=== PATIENT | female | born 1935 | race Caucasian/White ===

== ENCOUNTER 2018-05-02 06:53 | Day surgery (SDC) | payer MEDICARE, BC ==
[2018-05-02] MEDS ORDERED: Sodium Chloride 0.9% 5 ML Syringe FLUSH PRN (07:30)
[2018-05-02] MEDS ORDERED: Lactated Ringers 1,000 ML IV SCH (07:30)
[2018-05-02] MEDS: Phenylephrine 10% Ophth Soln 5 ML Bot EYELF SCH ×3 (07:44→08:05)
[2018-05-02] MEDS: Cyclopentolate 1% Opth Soln 2 ML Bottle EYELF SCH ×3 (07:49→08:16)
[2018-05-02] MEDS ORDERED: Gatifloxacin 0.5% Ophth Soln 2.5 ML Bot EYELF SCH (08:00)
[2018-05-02] MEDS ORDERED: Carbachol 0.01% Intraocular 1.5 ML Vial EYELF ONE (09:23)
[2018-05-02] MEDS ORDERED: Water For Irrigation,Sterile 1,500 ML Container IRR ONE (09:23)
[2018-05-02] MEDS ORDERED: Balanced Salt Solution Ophth Irrig 15 ML Bottle EYELF ONE (09:23)
[2018-05-02] MEDS ORDERED: Balanced Salt Solution Plus Ophth Irrig 500 ML Bottle IOCULAR ONE (09:23)
[2018-05-02] MEDS ORDERED: Lidocaine 2% with EPINEPHrine 1:100,000 20 ML MDV INJECT ONE (09:24)
[2018-05-02] MEDS ORDERED: EPINEPHrine 1 MG/ML SDV ONE (09:24)
[2018-05-02] MEDS ORDERED: Dexamethasone/Neomycin/Polymyxin B Ophth Oint 3.5 GM Tube EYELF ONE (09:24)
[2018-05-02] MEDS ORDERED: Lidocaine 1% 10 ML MDV INJECT ONE (09:25)
[2018-05-02] MEDS ORDERED: Tetracaine HCl/PF 0.5% 4 ML Bottle EYEBOTH ONE (09:25)
[2018-05-02] MEDS ORDERED: Hyaluronate Sodium 1% 0.85 ML Syringe IOCULAR ONE (09:25)
[2018-05-02 09:44] VITALS: BP 145/53
--- NOTE | 2018-05-03 09:15 | OR ---
DATE OF SURGERY: 05/02/2018 SURGEON: Kofi Larson MD PREOPERATIVE DIAGNOSIS: Cataract, left eye. POSTOPERATIVE DIAGNOSIS: Cataract, left eye. OPERATION PERFORMED: Phacoemulsification with posterior chamber lens insertion, left eye. HISTORY: The patient presents at this time with increasing amount of difficulty seeing to read with the left eye. The vision for the left eye is 20/70. The left lens has a 3+ nuclear sclerosis, 3+ posterior subcapsular cataract, and a 2+ cortical change. This eye has a cataract of aging and a combined cataract. FINDINGS: The patient was taken to the operating room where appropriate anesthesia, sedation and monitoring were provided. A retrobulbar block was given on the left side. The eye was massaged and was found to be appropriately soft. The eye and eyelids were then prepped and draped in the usual sterile manner. A lid speculum was placed. A micro sharp blade was used to enter the anterior chamber inside the limbus inferior-temporally. Xylocaine was irrigated into the eye at this site. Healon was irrigated into the eye through this site. Then using a 2.85 mm corneal blade an entry was made into the anterior chamber just inside the limbus temporally. Healon was again irrigated into the eye. Then using a cystitome, the anterior capsulorrhexis was created. The lens nucleus was hydrodissected using a 27 gauge cannula and balanced salt solution. The phacoemulsification unit was introduced through the temporal site and the Joseph spatula through the inferior temporal site. In so doing, the lens nucleus was phacoemulsified. The cortical fragments of the lens were removed using the irrigation aspiration unit. The posterior capsule was polished. Healon was irrigated into the eye. The posterior chamber lens was inserted and rotated into position inside the capsular bag. The Healon was irrigated out of the eye. Miostat was irrigated into the eye and the pupil rounded nicely. A single interrupted 10-0 Nylon suture was placed through the temporal corneal incision site. Balanced salt solution was irrigated into the eye. The wound was tested and found to be tight. Maxitrol ointment was placed into the patient's left eye. The eyelids were closed and an eye patch and sidhu shield were placed. The patient left the operating room in good condition. /[id number]/MODL
== END 2018-05-02 10:15 | disposition home or self-care (01) ==
LOC: KA.SDS 06:53
PROVIDERS: ATTEND Ophthalmology
DX: H25.812 Combined forms of age-related cataract, left eye (principal); I13.0 Hypertensive heart and chronic kidney disease with heart failure and stage 1 through stage 4 chronic kidney disease, or unspecified chronic kidney disease; I50.42 Chronic combined systolic (congestive) and diastolic (congestive) heart failure; N18.3 Chronic kidney disease, stage 3 (moderate); J44.9 Chronic obstructive pulmonary disease, unspecified; N18.2 Chronic kidney disease, stage 2 (mild); E66.01 Morbid (severe) obesity due to excess calories; Z68.41 Body mass index [BMI] 40.0-44.9, adult; I48.2 Chronic atrial fibrillation; G47.33 Obstructive sleep apnea (adult) (pediatric); E78.2 Mixed hyperlipidemia
CPT/HCPCS: 00142; 36416; 66984; 85610; A9270; C1780; J0171; J7120

== ENCOUNTER 2019-11-13 16:20 | Emergency (ER) | payer MEDICARE, BC, OTHER ==
[2019-11-13] MEDS ORDERED: Sodium Chloride 0.9% 10 ML Syringe FLUSH PRN (16:51)
--- NOTE | 2019-11-13 17:02 | EDM.PDOC ---
ED HPI GENERAL MEDICAL PROBLEM - General Chief Complaint: Respiratory Problem Stated Complaint: HYPOXEMIA Time Seen by Provider: 11/13/19 16:35 Source of Information: Reports: Patient History Limitations: Reports: No Limitations - History of Present Illness INITIAL COMMENTS - FREE TEXT/NARRATIVE: 84 YO WF with PMH of COPD O2 dependent, Afib with CHF exacerbation who presents to ER with 1 day history of shortness of breath. Pt reports she uses home O2 in the [facility] and had begun to require more O2 since yesterday. Today patient reports feeling nauseated and vomited x 1. Pt denies chest pain, no fever/chills, no known sick contacts. Pt lives in an NURSING HOME. Pt with increased lower extremity swelling. Pt denies any positional dyspnea but reports decreased exercise tolerance. Onset: Today Location: Reports: Generalized Improves with: Reports: Rest Worsens with: Reports: Breathing Associated Symptoms: Reports: Cough, Nausea/Vomiting, Shortness of Breath. Denies: Chest Pain, cough w sputum, Fever/Chills, Malaise, Rash - Related Data Allergies Allergy/AdvReac Type Severity Reaction Status Date / Time No Known Drug Allergies Allergy Cannot Verified 05/02/18 07:28 Remember Home Meds: Home Meds Allopurinol [Zyloprim] 1 tab PO DAILY 06/18/16 [History] Cranberry Conc/Ascorbic Acid [Cranberry Plus Vitamin C Sftgl] 1 tab PO DAILY [History] Furosemide [Lasix] 40 mg PO DAILY 06/18/16 [History] Garlic 1 tab PO DAILY 06/18/16 [History] Lutein 1 tab PO DAILY 06/18/16 [History] Metolazone [Zaroxolyn] 2.5 mg PO MOFR 06/18/16 [History] Metoprolol Succinate [Toprol Xl] 100 mg PO DAILY 06/18/16 [History] Multivitamin-Min/Iron/FA/Vit K [Multi-Day Plus Minerals Tablet] 1 tab PO DAILY 06/18/16 [History] Potassium Chloride [Klor-Con 10] 10 meq PO DAILY 06/18/16 [History] Warfarin [Coumadin] 2.5 mg PO ASDIRECTED 06/18/16 [History] Albuterol/Ipratropium [DuoNeb 3.0-0.5 MG/3 ML] 3 ml NEB TID #60 neb 06/23/16 [Rx ] Budesonide [Pulmicort] 0.25 mg NEB BID 03/23/18 [History] Past Medical History HEENT History: Reports: Cataract, Impaired Vision Cardiovascular History: Reports: Afib, Heart Failure, High Cholesterol, Hypertension Other Cardiovascular History: pulmonary hypertension Respiratory History: Reports: COPD, Sleep Apnea Gastrointestinal History: Reports: None Genitourinary History: Reports: Renal Calculus MUD LOGGER History: Reports: Musculoskeletal History: Reports: None Endocrine/Metabolic History: Reports: Obesity/BMI 30+ Hematologic History: Reports: Anticoagulation Therapy - Infectious Disease History Infectious Disease History: Reports: Chicken Pox - Past Surgical History HEENT Surgical History: Reports: Cataract Surgery Cardiovascular Surgical History: Reports: None GI Surgical History: Reports: Colonoscopy Female Surgical History: Reports: None Endocrine Surgical History: Reports: None Musculoskeletal Surgical History: Reports: Hip Replacement Social & Family History - Caffeine Use Caffeine Use: Reports: Coffee, Soda Other Caffeine Use: 1 ED ROS GENERAL - Review of Systems Review Of Systems: See Below Constitutional: Reports: No Symptoms HEENT: Reports: No Symptoms Respiratory: Reports: Shortness of Breath, Cough Cardiovascular: Reports: Edema Endocrine: Reports: No Symptoms GI/Abdominal: Reports: No Symptoms : Reports: No Symptoms Musculoskeletal: Reports: No Symptoms Skin: Reports: No Symptoms Neurological: Reports: No Symptoms Psychiatric: Reports: No Symptoms Hematologic/Lymphatic: Reports: No Symptoms Immunologic: Reports: No Symptoms ED EXAM, GENERAL - Physical Exam Exam: See Below Exam Limited By: No Limitations General Appearance: Alert, WD/WN, No Apparent Distress Eye Exam: Bilateral Eye: PERRL Throat/Mouth: Normal Inspection, Normal Lips, Normal Teeth, Normal Gums, Normal Oropharynx, Normal Voice, No Airway Compromise Head: Atraumatic, Normocephalic Neck: Normal Inspection, Supple, Non-Tender, Full Range of Motion Respiratory/Chest: No Respiratory Distress, Normal Breath Sounds, No Accessory Muscle Use, Chest Non-Tender, Decreased Breath Sounds. No: Respiratory Distress , Rales, Rhonchi, Accessory Muscle Use Cardiovascular: Normal Peripheral Pulses, No Gallop, No JVD, No Murmur, No Rub, Irregularly Irregular GI/Abdominal: Normal Bowel Sounds, Soft, Non-Tender, No Organomegaly, No Distention, No Abnormal Bruit, No Mass Back Exam: Normal Inspection, Full Range of Motion, NT Extremities: Normal Inspection, Normal Range of Motion, Non-Tender, Normal Capillary Refill, No Pedal Edema Neurological: Alert, Oriented, CN II-XII Intact, Normal Cognition, Normal Gait, Normal Reflexes, No Motor/Sensory Deficits Psychiatric: Normal Affect, Normal Mood Skin Exam: Warm Lymphatic: No Adenopathy EKG INTERPRETATION EKG Date: 11/13/19 Time: 17:09 Rhythm: A-Fib Rate (Beats/Min): 83 [place]: Normal P-Wave: Present QRS: Normal ST-T: Normal QT: Normal Comparison: No Change Course - Vital Signs Last Recorded V/S: Last Vital Signs Temp 35.9 C L 11/13/19 16:43 Pulse 85 11/13/19 16:43 Resp 24 H 11/13/19 16:43 BP 131/50 L 11/13/19 16:43 Pulse Ox 80 L 11/13/19 16:43 - Orders/Labs/Meds Orders: Active Orders 24 hr Category Date Time Status Cardiac Monitoring [RC] . DIRECTED Care 11/13/19 16:51 Ordered EKG Documentation Completion [RC] ASDIRECTED Care 11/13/19 16:52 Ordered Peripheral IV Care [RC] . DIRECTED Care 11/13/19 16:52 Ordered B-TYPE NATRIURETIC PEPTIDE,BNP [CHEM] Stat Lab 11/13/19 16:51 Ordered CK W CKMB [CHEM] Stat Lab 11/13/19 16:51 Ordered COMPREHENSIVE METABOLIC PN,CMP [CHEM] Stat Lab 11/13/19 16:51 Ordered INR,PT,PROTHROMBIN TIME [COAG] Stat Lab 11/13/19 16:51 Ordered PTT,PARTIAL THROMBOPLSTIN TIME [COAG] Stat Lab 11/13/19 16:51 Ordered TROPONIN I [CHEM] Stat Lab 11/13/19 16:51 Ordered Sodium Chloride 0.9% [Saline Flush] Med 11/13/19 16:51 Ordered 10 ml FLUSH Q8HR PRN Peripheral IV Insertion Adult [OM.PC] Routine Oth 11/13/19 16:51 Ordered EKG 12 Lead [EK] Routine Ther 11/13/19 16:51 Ordered Medication Orders Sodium Chloride (Saline Flush) 10 ml FLUSH Q8HR PRN PRN Reason: keep vein open Labs: Laboratory Tests 03/24/20 03/24/20 Range/Units 16:45 16:45 WBC 9.61 (5.00-10.00) 10^3/uL RBC 5.10 (3.80-5.50) 10^6/uL Hgb 15.2 (12.0-16.0) g/dL Hct 49.8 H (37.0-47.0) % MCV 97.6 H D (82.0-92.0) fL MCH 29.8 (27.0-31.0) pg MCHC 30.5 L (32.0-36.0) g/dL RDW 13.6 (11.5-14.5) % Plt Count 69 L (150-400) 10^3/uL MPV 11.6 H (7.4-10.4) fL Immature Gran % (Auto) 0.0 (0.0-5.0) % Neut % (Auto) 90.0 H (50.0-70.0) % Lymph % (Auto) 7.7 L (20.0-40.0) % [place] % (Auto) 2.0 (2.0-8.0) % Eos % (Auto) 0.1 L (1.0-3.0) % Baso % (Auto) 0.2 (0.0-1.0) % Immature Gran # (Auto) 0.00 (0.00-0.50) 10^3/uL Neut # (Auto) 8.65 H (2.50-7.00) 10^3/uL Lymph # (Auto) 0.74 L (1.00-4.00) 10^3/uL [place] # (Auto) 0.19 (0.10-0.80) 10^3/uL Eos # (Auto) 0.01 L (0.10-0.30) 10^3/uL Baso # (Auto) 0.02 (0.00-0.10) 10^3/uL B-Natriuretic Peptide 40 (0-100) pg/mL Meds: Medications Generic Name Dose Route Start Last Admin Trade Name Freq PRN Reason Stop Dose Admin Sodium Chloride 10 ml 11/13/19 16:51 Saline Flush FLUSH Q8HR PRN keep vein open - Radiology Interpretation Free Text/Narrative:: CXR- NAD - Re-Assessments/Exams Free Text/Narrative Re-Assessment/Exam: 11/13/19 17:57 Pt reports she feels fine. SaO2-96% on 2L. Pt denies cough, congestion, fever/ chills. Pt was offered overnight observation and she refused stating she needs to get home to her . Discussed case with Amara De La Rosa- agrees with management and discharge. Pt has an appointment at the [facility] 10am tomorrow. Pt was instructed to use her home nebulizer treatments Q4 and PRN. Pt understood and is comfortable with discharge plan. Departure - Departure Time of Disposition: 18:02 Disposition: Home, Self-Care 01 Condition: Good Clinical Impression: COPD exacerbation - Discharge Information Instructions: Chronic Obstructive Pulmonary Disease Exacerbation Referrals: Rachel Cortes, [employer] [Primary Care Provider] - Forms: ED Department Discharge Additional Instructions: 1. discharge home 2. continue home O2 at 2L 3. nebulizer treatments every 4 hours and as needed 4. follow up in clinic as scheduled tomorrow at 10a 5. return to ER for worsening symptoms 6. continue home medications Sepsis Event Note - Focused Exam Vital Signs: Vital Signs Temp Pulse Resp BP Pulse Ox 11/13/19 16:43 35.9 C L 85 24 H 131/50 L 80 L Date Exam was Performed: 11/13/19 Time Exam was Performed: 17:38 - My Orders Last 24 Hours: My Active Orders 11/13/19 16:51 Cardiac Monitoring [RC] . DIRECTED B-TYPE NATRIURETIC PEPTIDE,BNP [CHEM] Stat CK W CKMB [CHEM] Stat COMPREHENSIVE METABOLIC PN,CMP [CHEM] Stat INR,PT,PROTHROMBIN TIME [COAG] Stat PTT,PARTIAL THROMBOPLSTIN TIME [COAG] Stat TROPONIN I [CHEM] Stat Sodium Chloride 0.9% [Saline Flush] 10 ml FLUSH Q8HR PRN Peripheral IV Insertion Adult [OM.PC] Routine EKG 12 Lead [EK] Routine 11/13/19 16:52 EKG Documentation Completion [RC] ASDIRECTED Peripheral IV Care [RC] . DIRECTED - Assessment/Plan Last 24 Hours: My Active Orders 11/13/19 16:51 Cardiac Monitoring [RC] . DIRECTED B-TYPE NATRIURETIC PEPTIDE,BNP [CHEM] Stat CK W CKMB [CHEM] Stat COMPREHENSIVE METABOLIC PN,CMP [CHEM] Stat INR,PT,PROTHROMBIN TIME [COAG] Stat PTT,PARTIAL THROMBOPLSTIN TIME [COAG] Stat TROPONIN I [CHEM] Stat Sodium Chloride 0.9% [Saline Flush] 10 ml FLUSH Q8HR PRN Peripheral IV Insertion Adult [OM.PC] Routine EKG 12 Lead [EK] Routine 11/13/19 16:52 EKG Documentation Completion [RC] ASDIRECTED Peripheral IV Care [RC] . DIRECTED Assessment:: 1. COPD exacerbation Plan: 1. discharge home 2. continue home O2 at 2L 3. nebulizer treatments every 4 hours and as needed 4. follow up in clinic as scheduled tomorrow at 10a 5. return to ER for worsening symptoms 6. continue home medications
[2019-11-13 17:26] LABS: ANION GAP 7.4 mmol/L (5-15); CHLORIDE,CL 98 mmol/L (98-115); SODIUM,NA 143 mmol/L (136-145)
--- NOTE | 2019-11-13 17:37 | CR ---
[id number] RAD/RAD Chest PA or AP 1V EXAM: SINGLE VIEW CHEST. INDICATION: SHORTNESS OF BREATH COMPARISON: CORRELATION IS MADE WITH THE EXAM OF JUNE 20, 2016 FINDINGS: Scarring at the right lung base is seen There is no pneumonia or edema otherwise The cardiomediastinal contour is stable IMPRESSION: NO CHANGE SINCE LAST EXAM Cem Perera MD 11/13/19 [id number] Thank you for allowing us to participate in the care of your patient.
[2019-11-13 17:52] VITALS: BP 111/53; PULSE 82
[2019-11-13] MEDS: Albuterol/Ipratropium 3.0-0.5 MG/3 ML Neb Soln NEB ONE (18:00)
[2019-11-13 18:29] LABS: PTT,PARTIAL THROMBOPLSTIN TIME 33.6 SEC (23.1-31.9)
== END 2019-11-13 18:25 | disposition home or self-care (01) ==
LOC: KA.ED 16:20
DX: J44.1 Chronic obstructive pulmonary disease with (acute) exacerbation (principal); I48.91 Unspecified atrial fibrillation; I11.0 Hypertensive heart disease with heart failure; I50.9 Heart failure, unspecified; E66.9 Obesity, unspecified; Z68.41 Body mass index [BMI] 40.0-44.9, adult; Z99.81 Dependence on supplemental oxygen; Z79.01 Long term (current) use of anticoagulants
CPT/HCPCS: 71045; 80053; 82550; 82553; 83880; 84484; 85025; 85610; 85730; 93005; 99284; 99285-25; J7620-GY

== ENCOUNTER 2022-12-15 10:01 | Inpatient (IN) | payer MEDICARE, BC ==
[2022-12-15] MEDS ORDERED: Sodium Chloride 0.9% 10 ML Syringe FLUSH PRN (10:16)
[2022-12-15 11:13] LABS: ANION GAP 5.19999 mmol/L (5-15); CHLORIDE,CL 99 mmol/L (98-107); ESTIMATED GFR 40 mL/min (>=60); SODIUM,NA 145 mmol/L (136-145)
[2022-12-15 12:31] LABS: O2 DELIVERY DEVICE NASAL CANNULA
[2022-12-15 12:33] LABS: BASE EXCESS ARTERIAL 18 mmol/L ((-2)-(+3)); BICARBONATE,ARTERIAL 49 mmol/L (21-28); O2 SATURATION ARTERIAL 98 %; PO2 ARTERIAL 106 mmHG (83-108)
[2022-12-15 12:36] LABS: PCO2 ARTERIAL 79 mmHG (35-48)
[2022-12-15] MEDS ORDERED: Acetaminophen 650 MG Tab.ER PO PRN (15:48)
[2022-12-15] MEDS ORDERED: Warfarin 2.5 MG Tab PO SCH (16:00)
[2022-12-15] MEDS: Albuterol/Ipratropium 3.0-0.5 MG/3 ML Neb Soln NEB SCH (18:00)
[2022-12-15] MEDS: Allopurinol 100 MG Tab PO SCH (20:22)
[2022-12-15] MEDS: Budesonide 0.5 MG/2 ML Neb Susp INH SCH (20:22)
[2022-12-16] MEDS: Albuterol/Ipratropium 3.0-0.5 MG/3 ML Neb Soln NEB SCH ×3 (06:32→19:30)
[2022-12-16 08:38] LABS: O2 DELIVERY DEVICE NASAL CANNULA
[2022-12-16 08:42] LABS: PCO2 ARTERIAL 59 mmHG (35-48); PO2 ARTERIAL 69 mmHG (83-108)
[2022-12-16 08:43] LABS: BASE EXCESS ARTERIAL 17 mmol/L ((-2)-(+3)); BICARBONATE,ARTERIAL 44 mmol/L (21-28); O2 SATURATION ARTERIAL 94 %
[2022-12-16] MEDS: Budesonide 0.5 MG/2 ML Neb Susp INH SCH ×2 (08:43→20:28)
[2022-12-16] MEDS: Metoprolol Succinate 50 MG Tab.ER PO SCH (08:43)
[2022-12-16 08:50] LABS: CHLORIDE,CL 100 mmol/L (98-107); SODIUM,NA 145 mmol/L (136-145)
[2022-12-16 08:52] LABS: ANION GAP 3.89999 mmol/L (5-15); ESTIMATED GFR 48 mL/min (>=60)
[2022-12-16] MEDS: Furosemide 40 MG Tab PO SCH (13:16)
[2022-12-16] MEDS: Furosemide 20 MG Tab PO SCH (15:51)
[2022-12-16] MEDS: Allopurinol 100 MG Tab PO SCH (20:28)
[2022-12-17] MEDS: Albuterol/Ipratropium 3.0-0.5 MG/3 ML Neb Soln NEB SCH ×3 (06:26→19:10)
[2022-12-17 07:22] LABS: CHLORIDE,CL 103 mmol/L (98-107); SODIUM,NA 146 mmol/L (136-145)
[2022-12-17 07:38] LABS: ANION GAP 1.89999 mmol/L (5-15); ESTIMATED GFR 50 mL/min (>=60)
[2022-12-17] MEDS: Furosemide 20 MG Tab PO SCH (08:09)
[2022-12-17] MEDS: Furosemide 40 MG Tab PO SCH (08:09)
[2022-12-17] MEDS: Budesonide 0.5 MG/2 ML Neb Susp INH SCH ×2 (08:40→20:33)
[2022-12-17] MEDS: Metoprolol Succinate 50 MG Tab.ER PO SCH (09:00)
[2022-12-17] MEDS: Allopurinol 100 MG Tab PO SCH (20:33)
[2022-12-17] MEDS ORDERED: Metoprolol Succinate 50 MG Tab.ER PO SCH (21:00)
[2022-12-18] MEDS: Albuterol/Ipratropium 3.0-0.5 MG/3 ML Neb Soln NEB SCH (06:11)
[2022-12-18 07:58] LABS: CHLORIDE,CL 100 mmol/L (98-107); SODIUM,NA 142 mmol/L (136-145)
[2022-12-18 08:04] LABS: ESTIMATED GFR 58 mL/min (>=60)
[2022-12-18] MEDS: Budesonide 0.5 MG/2 ML Neb Susp INH SCH (08:29)
[2022-12-18] MEDS: Furosemide 40 MG Tab PO SCH (08:29)
[2022-12-18] MEDS: Furosemide 20 MG Tab PO SCH (08:29)
[2022-12-18 11:49] VITALS: BP 98/51; PULSE 93
== END 2022-12-18 14:15 | disposition swing bed (61) | DRG 189 ==
LOC: KA.ED 10:01 → KA.MS 12:11 → UNDOADMIN 12:49
PROVIDERS: ADMIT Student in an Organized Health Care Education/Training Program; ATTEND Student in an Organized Health Care Education/Training Program
DX: J96.21 Acute and chronic respiratory failure with hypoxia (principal); I13.0 Hypertensive heart and chronic kidney disease with heart failure and stage 1 through stage 4 chronic kidney disease, or unspecified chronic kidney disease; E87.3 Alkalosis; I50.32 Chronic diastolic (congestive) heart failure; I48.20 Chronic atrial fibrillation, unspecified; Z68.41 Body mass index [BMI] 40.0-44.9, adult; I27.20 Pulmonary hypertension, unspecified; E78.2 Mixed hyperlipidemia; E66.01 Morbid (severe) obesity due to excess calories; J96.22 Acute and chronic respiratory failure with hypercapnia; N18.31 Chronic kidney disease, stage 3a; M19.90 Unspecified osteoarthritis, unspecified site; G47.33 Obstructive sleep apnea (adult) (pediatric); Z96.649 Presence of unspecified artificial hip joint; G47.00 Insomnia, unspecified; Z79.01 Long term (current) use of anticoagulants; Z79.899 Other long term (current) drug therapy; Z87.442 Personal history of urinary calculi; Z99.81 Dependence on supplemental oxygen; Z98.49 Cataract extraction status, unspecified eye
CPT/HCPCS: 36415; 36416; 36600; 71045; 80048; 80053; 82803; 83735; 83880; 84100; 84484; 85025; 85610; 87040; 93005; 93010; 94640; 99284; 99285; A9270-GY; J3490; J7620-GY

== ENCOUNTER 2022-12-18 14:15 | Inpatient (IN) | payer MEDICARE, BC ==
[~2022-12-18 14:15] MED LIST: Sodium Chloride 0.9% 10 ML Syringe FLUSH PRN
[2022-12-18] MEDS ORDERED: Acetaminophen 650 MG Tab.ER PO PRN (14:21)
[2022-12-18] MEDS: Albuterol/Ipratropium 3.0-0.5 MG/3 ML Neb Soln NEB SCH ×2 (15:00→20:56)
[2022-12-18] MEDS: Allopurinol 100 MG Tab PO SCH (20:56)
[2022-12-18] MEDS: Budesonide 0.5 MG/2 ML Neb Susp INH SCH (20:56)
[2022-12-18] MEDS ORDERED: Albuterol/Ipratropium 3.0-0.5 MG/3 ML Neb Soln NEB SCH (21:00)
[2022-12-18] MEDS ORDERED: Allopurinol 100 MG Tab PO SCH (21:00)
[2022-12-18] MEDS ORDERED: BUDESONIDE 0.25 MG/2 ML NEB SCH (21:00)
[2022-12-18] MEDS ORDERED: METOPROLOL SUCCINATE 100 MG PO SCH (21:00)
[2022-12-18] MEDS: Metoprolol Succinate 50 MG Tab.ER PO SCH (21:04)
[2022-12-19] MEDS ORDERED: Furosemide 40 MG Tab PO SCH ×2 (08:00→14:00)
[2022-12-19] MEDS: Multivitamins with Minerals/Iron/Folic Acid/Lycopene Tab PO SCH (08:24)
[2022-12-19] MEDS: Potassium Chloride 20 MEQ Tab.ER PO SCH (08:24)
[2022-12-19] MEDS: Furosemide 40 MG Tab PO SCH (08:24)
[2022-12-19] MEDS: Albuterol/Ipratropium 3.0-0.5 MG/3 ML Neb Soln NEB SCH ×3 (08:25→18:33)
[2022-12-19] MEDS: Budesonide 0.5 MG/2 ML Neb Susp INH SCH ×2 (08:43→20:13)
[2022-12-19] MEDS ORDERED: Non-Formulary Medication 1 Each (Lutein [Lutein] 20 MG Capsule) PO SCH (09:00)
[2022-12-19] MEDS ORDERED: Non-Formulary Medication 1 Each (Multivitamin-Min/Iron/Fa/Vit K [Multi-Day Plus Minerals T PO SCH (09:00)
[2022-12-19] MEDS ORDERED: Non-Formulary Medication 1 Each (Cranberry Conc/Ascorbic Acid [Cranberry Plus Vitamin C Sf PO SCH (09:00)
[2022-12-19] MEDS ORDERED: Potassium Chloride 10 MEQ Tab.ER PO SCH (09:00)
[2022-12-19] MEDS ORDERED: GARLIC PO SCH (09:00)
[2022-12-19] MEDS: Furosemide 20 MG Tab PO SCH (14:30)
[2022-12-19] MEDS ORDERED: Warfarin 2.5 MG Tab PO ONE (18:00)
[2022-12-19] MEDS: Metoprolol Succinate 50 MG Tab.ER PO SCH (20:11)
[2022-12-19] MEDS: Acetaminophen 650 MG Tab.ER PO PRN (20:12)
[2022-12-19] MEDS: Allopurinol 100 MG Tab PO SCH (20:12)
[2022-12-20] MEDS: Albuterol/Ipratropium 3.0-0.5 MG/3 ML Neb Soln NEB SCH ×3 (07:49→18:01)
[2022-12-20] MEDS: Budesonide 0.5 MG/2 ML Neb Susp INH SCH ×2 (07:50→20:49)
[2022-12-20] MEDS ORDERED: Metolazone 2.5 MG Tab PO SCH (09:00)
[2022-12-20] MEDS: Furosemide 40 MG Tab PO SCH (09:31)
[2022-12-20] MEDS: Potassium Chloride 20 MEQ Tab.ER PO SCH (09:31)
[2022-12-20] MEDS: Multivitamins with Minerals/Iron/Folic Acid/Lycopene Tab PO SCH (09:31)
[2022-12-20] MEDS: Furosemide 20 MG Tab PO SCH (14:07)
[2022-12-20] MEDS ORDERED: Warfarin 2.5 MG Tab PO ONE (18:00)
[2022-12-20] MEDS: Metoprolol Succinate 50 MG Tab.ER PO SCH (20:44)
[2022-12-20] MEDS: Allopurinol 100 MG Tab PO SCH (20:44)
[2022-12-21] MEDS: Albuterol/Ipratropium 3.0-0.5 MG/3 ML Neb Soln NEB SCH ×3 (07:36→19:58)
[2022-12-21] MEDS: Potassium Chloride 20 MEQ Tab.ER PO SCH (08:26)
[2022-12-21] MEDS: Furosemide 40 MG Tab PO SCH (08:26)
[2022-12-21] MEDS: Multivitamins with Minerals/Iron/Folic Acid/Lycopene Tab PO SCH (08:26)
[2022-12-21] MEDS: Budesonide 0.5 MG/2 ML Neb Susp INH SCH ×2 (09:03→20:15)
[2022-12-21] MEDS: Furosemide 20 MG Tab PO SCH (14:02)
[2022-12-21] MEDS ORDERED: Warfarin 5 MG Tab PO ONE (18:00)
[2022-12-21] MEDS: Metoprolol Succinate 50 MG Tab.ER PO SCH (20:14)
[2022-12-21] MEDS: Allopurinol 100 MG Tab PO SCH (20:14)
[2022-12-22] MEDS: Multivitamins with Minerals/Iron/Folic Acid/Lycopene Tab PO SCH (08:20)
[2022-12-22] MEDS: Furosemide 40 MG Tab PO SCH (08:20)
[2022-12-22] MEDS: Potassium Chloride 20 MEQ Tab.ER PO SCH (08:20)
[2022-12-22] MEDS: Albuterol/Ipratropium 3.0-0.5 MG/3 ML Neb Soln NEB SCH ×3 (09:10→20:10)
[2022-12-22] MEDS: Budesonide 0.5 MG/2 ML Neb Susp INH SCH ×2 (09:10→20:10)
[2022-12-22] MEDS: Furosemide 20 MG Tab PO SCH (13:23)
[2022-12-22] MEDS ORDERED: Warfarin 2.5 MG Tab PO ONE (18:00)
[2022-12-22] MEDS: Allopurinol 100 MG Tab PO SCH (20:10)
[2022-12-22] MEDS: Acetaminophen 650 MG Tab.ER PO PRN (20:10)
[2022-12-22] MEDS: Metoprolol Succinate 50 MG Tab.ER PO SCH (20:19)
[2022-12-23] MEDS: Albuterol/Ipratropium 3.0-0.5 MG/3 ML Neb Soln NEB SCH (07:36)
[2022-12-23] MEDS: Potassium Chloride 20 MEQ Tab.ER PO SCH (08:21)
[2022-12-23] MEDS: Multivitamins with Minerals/Iron/Folic Acid/Lycopene Tab PO SCH (08:21)
[2022-12-23] MEDS: Furosemide 40 MG Tab PO SCH (08:21)
[2022-12-23] MEDS: Budesonide 0.5 MG/2 ML Neb Susp INH SCH (09:05)
[2022-12-23 09:22] VITALS: BP 121/66; PULSE 92
[2022-12-23] MEDS ORDERED: Warfarin 2.5 MG Tab PO ONE (18:00)
== END 2022-12-23 10:27 | DRG 292 ==
LOC: KA.MS 14:15
PROVIDERS: ADMIT Nurse Practitioner Family; ATTEND Family Medicine
DX: I13.0 Hypertensive heart and chronic kidney disease with heart failure and stage 1 through stage 4 chronic kidney disease, or unspecified chronic kidney disease (principal); I48.20 Chronic atrial fibrillation, unspecified; I50.32 Chronic diastolic (congestive) heart failure; Z68.41 Body mass index [BMI] 40.0-44.9, adult; J44.9 Chronic obstructive pulmonary disease, unspecified; I27.20 Pulmonary hypertension, unspecified; L97.519 Non-pressure chronic ulcer of other part of right foot with unspecified severity; Z66 Do not resuscitate; E78.2 Mixed hyperlipidemia; E66.01 Morbid (severe) obesity due to excess calories; N18.31 Chronic kidney disease, stage 3a; M19.90 Unspecified osteoarthritis, unspecified site; G47.33 Obstructive sleep apnea (adult) (pediatric); E78.5 Hyperlipidemia, unspecified; Z96.643 Presence of artificial hip joint, bilateral; H54.7 Unspecified visual loss; F32.A Depression, unspecified; Z99.81 Dependence on supplemental oxygen; Z79.01 Long term (current) use of anticoagulants
CPT/HCPCS: 36416; 85610; 94640; 97110-GO; 97535-GO; A9270-GY; J3490; J7620-GY

== ENCOUNTER 2023-01-05 09:10 | Emergency (ER) | payer MEDICARE, BC ==
[2023-01-05 09:39] LABS: BASOPHILS ABSOLUTE AUTO 0.03 10^3/uL (0.00-0.10); BASOPHILS PERCENT AUTO 0.3 % (0.0-1.0); EOSINOPHILS ABSOLUTE AUTO 0.16 10^3/uL (0.10-0.30); EOSINOPHILS PERCENT AUTO 1.6 % (1.0-3.0); HEMATOCRIT 46.1 % (37.0-47.0); HEMOGLOBIN 13.8 g/dL (12.0-16.0); IMMATURE GRAN ABSOLUTE AUTO 0.04 10^3/uL (0.00-0.50); IMMATURE GRAN PERCENT AUTO 0.4 % (0.0-5.0); LYMPHOCYTES ABSOLUTE AUTO 1.36 10^3/uL (1.00-4.00); LYMPHOCYTES PERCENT AUTO 13.5 % (20.0-40.0); MEAN CORPUSCULAR HEMOGLOBIN 31.3 pg (27.0-31.0); MEAN CORPUSCULAR HGB CONC 29.9 g/dL (32.0-36.0); MEAN CORPUSCULAR VOLUME 104.5 fL (82.0-92.0); MEAN PLATELET VOLUME 11.2 fL (7.4-10.4); MONOCYTES ABSOLUTE AUTO 0.82 10^3/uL (0.10-0.80); MONOCYTES PERCENT AUTO 8.2 % (2.0-8.0); NEUTROPHILS ABSOLUTE AUTO 7.64 10^3/uL (2.50-7.00); PLATELET COUNT,PLT 137 10^3/uL (150-400); RED BLOOD CELL COUNT 4.41 10^6/uL (3.80-5.50); RED CELL DISTRIBUTION WIDTH 13.5 % (11.5-14.5); WHITE BLOOD CELL COUNT,WBC 10.05 10^3/uL (5.00-10.00)
[2023-01-05 10:01] LABS: ALBUMIN 2.47 g/dL (3.40-5.00); ANION GAP 6.5 mmol/L (5-15); BILIRUBIN TOTAL 0.6 mg/dL (0.2-1.0); CALCIUM 8.5 mg/dL (8.7-10.3); CARBON DIOXIDE,CO2 41.6 mmol/L (21.0-32.0); CREATININE 0.91 mg/dL (0.51-1.17); EST CRCL DRUG DOSING (CG) 32.25 mL/min; POTASSIUM,K 4.1 mmol/L (3.5-5.1); PROTEIN TOTAL,TP 7.8 g/dL (6.4-8.2)
[2023-01-05 10:05] LABS: PROTHROMBIN TIME 19.2 SEC (9.2-11.2)
[2023-01-05 10:19] LABS: CORONAVIRUS COVID-19 NAA NEGATIVE (NEGATIVE); INFLUENZA A NAA NEGATIVE (NEGATIVE); INFLUENZA B NAA NEGATIVE (NEGATIVE); RESPIRATORY SYNCYTIAL VIR NAA NEGATIVE (NEGATIVE)
[2023-01-05] MEDS: Cefepime 2 GM Vial IVPUSH ONE (11:21)
[2023-01-05 12:18] VITALS: BP 143/90; PULSE 99
== END 2023-01-05 12:00 ==
LOC: KA.ED 09:10
DX: J18.9 Pneumonia, unspecified organism (principal); I13.0 Hypertensive heart and chronic kidney disease with heart failure and stage 1 through stage 4 chronic kidney disease, or unspecified chronic kidney disease; N18.30 Chronic kidney disease, stage 3 unspecified; I50.9 Heart failure, unspecified; I48.91 Unspecified atrial fibrillation; J44.9 Chronic obstructive pulmonary disease, unspecified; E66.9 Obesity, unspecified; Z68.41 Body mass index [BMI] 40.0-44.9, adult; Z79.01 Long term (current) use of anticoagulants; Z79.899 Other long term (current) drug therapy; Z20.822 Contact with and (suspected) exposure to COVID-19
CPT/HCPCS: 0241U; 71045; 80053; 83605; 83880; 84484; 85025; 85610; 93005; 96374; 99284; J0692

== ENCOUNTER 2023-03-13 06:45 | Emergency (ER) | payer MEDICARE, BC ==
[2023-03-13] MEDS ORDERED: Ketorolac 30 MG/ML SDV IM ONE (07:00)
[2023-03-13] MEDS ORDERED: traMADol 50 MG Tab PO ONE (07:34)
[2023-03-13 08:41] VITALS: BP 143/90; PULSE 90
== END 2023-03-13 10:15 | disposition home or self-care (01) ==
LOC: KA.ED 06:45
DX: M25.562 Pain in left knee (principal); J44.9 Chronic obstructive pulmonary disease, unspecified; E78.00 Pure hypercholesterolemia, unspecified; I13.0 Hypertensive heart and chronic kidney disease with heart failure and stage 1 through stage 4 chronic kidney disease, or unspecified chronic kidney disease; I50.9 Heart failure, unspecified; N18.30 Chronic kidney disease, stage 3 unspecified; E66.9 Obesity, unspecified; Z68.38 Body mass index [BMI] 38.0-38.9, adult; Z79.01 Long term (current) use of anticoagulants; Z79.899 Other long term (current) drug therapy
CPT/HCPCS: 73562-LT; 96372; 99283; 99284; A9270-GY; J1885